=== PATIENT | male | born 1965 | race Caucasian/White ===

== ENCOUNTER 2020-08-25 12:39 | Outpatient (CLI) | payer OTHER ==
[2020-08-25] VITALS (7 sets, daily range): BP systolic 124–157; BP diastolic 66–93; PULSE 48–77
[~2020-08-25] VITALS: Ht 182.9 cm; Wt 134.6 kg
[~2020-08-25 12:39] MED LIST: COZAAR 50MG50 MG/TAB PO; GLUCOPHAGE500 MG/TAB PO; LISINOPRIL20 MG PO; LORTAB 5/500 501 TAB PO; METHOCARBAMOL500 MG PO; NEURONTIN400 MG/CAP PO; VICODIN 5/5001 UDTAB PO; WELLBUTRIN75 MG PO
== END 2020-08-25 15:40 | disposition home or self-care (01) ==
LOC: COL.RAD 12:39
DX: M48.02 Spinal stenosis, cervical region (principal); M50.21 Other cervical disc displacement, high cervical region; M47.812 Spondylosis without myelopathy or radiculopathy, cervical region
CPT/HCPCS: Q9967